=== PATIENT | female | born 1970 | race Caucasian/White ===

== ENCOUNTER 2021-01-05 16:54 | Emergency (ER) | payer MEDICAID ==
[~2021-01-05] VITALS: Ht 154.9 cm; Wt 89.4 kg
[2021-01-05 16:58] VITALS: BP 139/89
[2021-01-05] MEDS ORDERED: ACETAMINOPHEN EXTRA STRENGTH 500 MG TAB PO ONE (17:05)
[2021-01-05] MEDS ORDERED: KETOROLAC 30 MG/ML VIAL IM ONE (17:05)
[2021-01-05] MEDS ORDERED: cefTRIAXone 1,000 MG in LIDOCAINE MPF 1% 2.1 ML IM ONE (17:05)
--- NOTE | 2021-01-05 17:06 | NUR ---
Patient ambulated to bed 3. RN evaluating the patient at bedside.
--- NOTE | 2021-01-05 17:14 | NUR ---
library media technician at bedside.
--- NOTE | 2021-01-05 17:26 | NUR ---
50 Y/O FROM HOME C/O FOOT PAIN INBETWEEN 4TH AND 5TH DIGIT THAT RADIATES TO DORSAL OF L FOOT, 10/ SHARP. TOOK TYLENOL AT 1200 01/06/21 WITH SOME RELIEF, PAIN IS BACK. FOOT HAS NO DISCHARGE, REDNESS AND SWELLING AROUND AREA, NO NUMBNESS OR TINGLING SENSATION OF FOOT. PT STATES THERE WAS NO INJURY PRIOR TO PAIN. NKA. PMH: DM2. DENIES SOB, COUGH, CHEST PAIN OR CONTACT WITH ANYONE COVID POSITIVE.
[2021-01-05] MEDS ORDERED: cefTRIAXone 1,000 MG VIAL ONE (17:28)
[2021-01-05] MEDS ORDERED: LIDOCAINE MPF 1% 5 ML ONE (17:29)
[2021-01-05] MEDS ORDERED: CEPH500C16 PO (18:15)
[2021-01-05] MEDS ORDERED: NAPR-54 PO (18:15)
[2021-01-05] MEDS ORDERED: SULF-59 PO (18:15)
[2021-01-05 18:30] VITALS: BP 139/89
--- NOTE | 2021-01-05 18:31 | NUR ---
Patient discharged with v/s stable. Written and verbal after care instructions given and explained. Patient alert, oriented and verbalized understanding of instructions. Ambulatory with steady gait. All questions addressed prior to discharge. ID band removed. Patient advised to follow up with PMD. Rx of KEFLEX, NAPROSYN, BACTRUM DS TAB given. Patient educated on indication of medication including possible reaction and side effects. Opportunity to ask questions provided and answered.
== END 2021-01-05 18:31 | disposition home or self-care (01) ==
LOC: MED 16:54
DX: L03.115 Cellulitis of right lower limb (principal)
CPT/HCPCS: 73630; 96372; 99284; J0696; J1885; J2001

== ENCOUNTER 2021-07-07 18:19 | Emergency (ER) | payer MEDICAID ==
[~2021-07-07] VITALS: Ht 154.9 cm; Wt 89.8 kg
[~2021-07-07 18:19] MED LIST: CEPH500C16 PO; NAPR-54 PO; SULF-59 PO
[2021-07-07 18:35] VITALS: BP 139/78
--- NOTE | 2021-07-07 18:38 | NUR ---
Patient ambulated to bed 11 with steady/even gait
--- NOTE | 2021-07-07 18:40 | NUR ---
51 y/o F BIB self c/o headache x 5 days worsening today. Patient A&Ox4, ambulatory, states pain to back and left side of head, 10/10, constant, non-radiating pain. Patient also reports mid left-sided back pain. Patient denies any medications for pain today. Denies fever, chills, N/V, abdominal pain, SOB, CP, blurry vision, dizziness. 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 Bed locked in lowest position, side rails x 1, call light in reach. PMH: DM Meds: Insulin NKA
--- NOTE | 2021-07-07 18:40 | NUR ---
Patient ambulated to restroom with steady/even gait.
--- NOTE | 2021-07-07 18:45 | NUR ---
Dr. Rosario is evaluating patient at bedside.
[2021-07-07] MEDS ORDERED: KETOROLAC 30 MG/ML VIAL IVP ONE (18:50)
[2021-07-07] MEDS ORDERED: ACETAMINOPHEN EXTRA STRENGTH 500 MG TAB PO ONE (18:50)
[2021-07-07] MEDS ORDERED: diazePAM 5 MG TAB PO ONE (18:50)
--- NOTE | 2021-07-07 19:10 | NUR ---
Report and transfer of care endorsed to XIOMARA Tolbert.
--- NOTE | 2021-07-07 19:10 | NUR ---
Blood & urine sample collected, walked to lab and handed to CPT Tara
--- NOTE | 2021-07-07 19:15 | NUR ---
RECIVED REPORT ABOUT PATIENT FROM HOLLIE SOLANO. CONTINUATION OF CARE. PATIENT LAYING IN BED WITH EYES CLOSED. PATIENT STATES PAIN IS IN HEAD, L SIDE OF JAW AND GENERALIZED BODY. PATIENT GIVEN MEDICATIONS ORDERED. PATIENT IV SITE REMAINS PATIENT.
[2021-07-07 19:19] LABS: BASOPHILS % (AUTO) 0.3 % (0.0-2.0); EOSINOPHILS # (AUTO) 0.1 K/uL (0-0.4); EOSINOPHILS % (AUTO) 1.3 % (0.0-4.0); HEMATOCRIT 42.2 % (36-48); HEMOGLOBIN 14.3 g/dL (12.0-16.0); LYMPHOCYTES # (AUTO) 2.1 K/uL (2.5-16.5); LYMPHOCYTES % (AUTO) 29.2 % (20.5-51.1); MEAN CORPUSCULAR HEMOGLOBIN 32 pg (27-31); MEAN CORPUSCULAR HGB CONC 34 g/dL (33-37); MEAN CORPUSCULAR VOLUME 93.9 fL (80-94); MONOCYTES # (AUTO) 0.6 K/uL (0.8-1.0); MONOCYTES % (AUTO) 7.7 % (1.7-9.3); NEUTROPHILS # (AUTO) 4.5 K/uL (1.8-7.7); NEUTROPHILS % (AUTO) 61.5 % (42.2-75.2); PLATELET COUNT (AUTO) 290 K/uL (140-450); RED BLOOD CELL COUNT(AUTO) 4.49 MIL/uL (4.20-5.40); RED CELL DISTRIBUTION WIDTH 12.5 % (11.6-13.7); WHITE BLOOD COUNT (AUTO) 7.3 K/uL (4.8-10.8)
--- NOTE | 2021-07-07 19:22 | NUR ---
PATIENT SIGNED CONSENT FORM FOR CT WITH CONTRAST.
[2021-07-07 19:32] LABS: ALBUMIN 3.4 g/dL (3.4-5.0); CARBON DIOXIDE 30.9 mmol/L (21-32); CREATININE 0.9 mg/dL (0.6-1.3); POTASSIUM 3.9 mmol/L (3.5-5.1); TOTAL BILIRUBIN 0.3 mg/dL (0.0-1.0)
--- NOTE | 2021-07-07 20:06 | NUR ---
Patient taken to ct via w/c.
--- NOTE | 2021-07-07 21:26 | NUR ---
PATIENT STATES CASTRO AND GENERALIZED PAIN HAS DECREASED, "I FEEL BETTER."
[2021-07-07] MEDS ORDERED: IBUP-2213 PO (21:33)
[2021-07-07] MEDS ORDERED: METH-1681 PO (21:33)
[2021-07-07 21:50] VITALS: BP 112/70
--- NOTE | 2021-07-07 21:50 | NUR ---
Patient discharged with v/s stable. Written and verbal after care instructions given and explained. Patient alert, oriented and verbalized understanding of instructions. Ambulatory with steady gait. All questions addressed prior to discharge. ID band removed. Patient advised to follow up with PMD. Rx of ROBAXIN, IBUPROFEN given. Patient educated on indication of medication including possible reaction and side effects. Opportunity to ask questions provided and answered.
== END 2021-07-07 21:50 | disposition home or self-care (01) ==
LOC: MED 18:19
DX: M62.830 Muscle spasm of back (principal); R51.9 Headache, unspecified; M54.2 Cervicalgia; E11.9 Type 2 diabetes mellitus without complications
CPT/HCPCS: 36415; 70470; 80053; 81002; 85025; 96374; 99285; J1885; Q9967

== ENCOUNTER 2022-06-18 19:42 | Emergency (ER) | payer MEDICAID, OTHER ==
[~2022-06-18] VITALS: Ht 154.9 cm; Wt 86.2 kg
[~2022-06-18 19:42] MED LIST changes: +IBUP-2213 PO; +METH-1681 PO
[2022-06-18 20:06] VITALS: BP 143/71
--- NOTE | 2022-06-18 20:11 | NUR ---
TO LOBBY FOLLOWING TRIAGE AND OBTAINING UA
--- NOTE | 2022-06-18 22:54 | NUR ---
PT AMBULATED TO BED NO 11
--- NOTE | 2022-06-18 23:06 | NUR ---
Dr. Story examining patient.
[2022-06-18] MEDS ORDERED: KETOROLAC 60 MG/2 ML VIAL IM ONE (23:25)
[2022-06-18] MEDS ORDERED: IBUP-2213 PO (23:48)
[2022-06-19 00:15] VITALS: BP 140/80
--- NOTE | 2022-06-19 00:15 | NUR ---
Patient discharged. Written and verbal after care instructions given and explained aoubt flank pain in adult. Patient alert, oriented and verbalized understanding of instructions. Ambulatory with steady gait. All questions addressed prior to discharge. ID band removed. Patient advised to follow up with PMD. Rx of ibuprofen given. Patient educated on indication of medication including possible reaction and side effects. Opportunity to ask questions provided and answered.
== END 2022-06-19 00:15 | disposition home or self-care (01) ==
LOC: MED 19:42
DX: R10.11 Right upper quadrant pain (principal); R51.9 Headache, unspecified; E11.9 Type 2 diabetes mellitus without complications; Z79.899 Other long term (current) drug therapy; Z98.890 Other specified postprocedural states
CPT/HCPCS: 81025; 96372; 99283; J1885

== ENCOUNTER 2023-02-27 19:55 | Emergency (ER) | payer OTHER ==
[~2023-02-27] VITALS: Ht 154.9 cm; Wt 83.0 kg
[2023-02-27 20:12] VITALS: BP 141/104
--- NOTE | 2023-02-27 20:17 | NUR ---
Dr. Montes examining patient in triage room
--- NOTE | 2023-02-27 20:21 | NUR ---
Patient taken to bed 11.
--- NOTE | 2023-02-27 20:30 | NUR ---
nterpreter # [id number] C/O facial numbness/droop x today. Patient reported, had facial numbness/droop ~ 1000 AM today. Patient denies left side numbness or weakness. PMHx: DM
[2023-02-27 20:45] LABS: BASOPHILS % (AUTO) 0.5 % (0.0-2.0); EOSINOPHILS # (AUTO) 0.1 K/uL (0-0.4); EOSINOPHILS % (AUTO) 1.1 % (0.0-4.0); HEMATOCRIT 42.6 % (36-48); HEMOGLOBIN 14.6 g/dL (12.0-16.0); LYMPHOCYTES # (AUTO) 2.9 K/uL (2.5-16.5); LYMPHOCYTES % (AUTO) 41.4 % (20.5-51.1); MEAN CORPUSCULAR HEMOGLOBIN 31 pg (27-31); MEAN CORPUSCULAR HGB CONC 34 g/dL (33-37); MEAN CORPUSCULAR VOLUME 91.4 fL (80-94); MONOCYTES # (AUTO) 0.5 K/uL (0.8-1.0); MONOCYTES % (AUTO) 7.2 % (1.7-9.3); NEUTROPHILS # (AUTO) 3.5 K/uL (1.8-7.7); NEUTROPHILS % (AUTO) 49.8 % (42.2-75.2); PLATELET COUNT (AUTO) 287 K/uL (140-450); RED BLOOD CELL COUNT(AUTO) 4.66 MIL/uL (4.20-5.40); RED CELL DISTRIBUTION WIDTH 12.9 % (11.6-13.7); WHITE BLOOD COUNT (AUTO) 7.1 K/uL (4.8-10.8)
--- NOTE | 2023-02-27 20:47 | NUR ---
Patient taken to CT scan via gurney.
--- NOTE | 2023-02-27 20:56 | NUR ---
PT RETURNED FROM CT VIA [facility]
[2023-02-27 21:06] LABS: ALBUMIN 3.5 g/dL (3.4-5.0); ANION GAP 10.3 (8-16); CARBON DIOXIDE 29.8 mmol/L (21-32); CREATININE 0.8 mg/dL (0.6-1.3); POTASSIUM 4.1 mmol/L (3.5-5.1); TOTAL BILIRUBIN 0.5 mg/dL (0.0-1.0)
[2023-02-27] MEDS ORDERED: PRED20TA5 PO (22:11)
[2023-02-27] MEDS ORDERED: ACYC400T14 PO (22:11)
[2023-02-27 22:28] VITALS: BP 138/71
--- NOTE | 2023-02-27 22:28 | NUR ---
Patient discharged with v/s stable. Written and verbal after care instructions given and explained. Patient alert, oriented and verbalized understanding of instructions. with steady gait. All questions addressed prior to discharge. ID band removed. Patient advised to follow up with PMD. Rx of zovirax and prednuisone given. Patient educated on indication of medication including possible reaction and side effects. Opportunity to ask questions provided and answered. pt left with her belongings and accompany with sister.
== END 2023-02-27 22:28 | disposition home or self-care (01) ==
LOC: MED 19:55
DX: G51.0 Bell's palsy (principal); E11.9 Type 2 diabetes mellitus without complications; Z79.4 Long term (current) use of insulin; Z79.899 Other long term (current) drug therapy
CPT/HCPCS: 36415; 70450; 80053; 85025; 99284

== ENCOUNTER 2023-12-19 15:41 | Emergency (ER) | payer OTHER ==
[~2023-12-19] VITALS: Ht 170.2 cm; Wt 90.7 kg
[~2023-12-19 15:41] MED LIST changes: +ACYC400T14 PO; +PRED20TA5 PO
[2023-12-19 15:46] VITALS: BP 174/119; PULSE 98; RESP 20; TEMP 98.1; O2SAT 96
[2023-12-19 16:27] VITALS: BP 146/83; PULSE 95; RESP 13; TEMP 98.1
[2023-12-19 16:45] VITALS: O2SAT 96
[2023-12-19 17:42] VITALS: O2SAT 96
[2023-12-19] MEDS ORDERED: IBUP-2213 PO (18:01)
[2023-12-19] MEDS ORDERED: ACET-10509 PO (18:01)
[2023-12-19] MEDS ORDERED: CYCL-711 PO (18:02)
[2023-12-19] MEDS ORDERED: LID5T TP (18:02)
[2023-12-19] MEDS: KETOROLAC 30 MG/ML VIAL IM ONE (18:23)
[2023-12-20] MEDS ORDERED: ACET-10509 PO (10:59)
[2023-12-20] MEDS ORDERED: IBUP-2213 PO (10:59)
[2023-12-20] MEDS ORDERED: LID5T TP (10:59)
[2023-12-20] MEDS ORDERED: CYCL-711 PO (10:59)
== END 2023-12-19 18:30 | disposition home or self-care (01) ==
LOC: MED 15:41
DX: S16.1XXA Strain of muscle, fascia and tendon at neck level, initial encounter (principal); S20.212A Contusion of left front wall of thorax, initial encounter; M50.30 Other cervical disc degeneration, unspecified cervical region; M25.512 Pain in left shoulder; R10.9 Unspecified abdominal pain; E11.9 Type 2 diabetes mellitus without complications; Z79.4 Long term (current) use of insulin; Z79.899 Other long term (current) drug therapy; V49.88XA Car occupant (driver) (passenger) injured in other specified transport accidents, initial encounter; Y93.89 Activity, other specified; Y92.89 Other specified places as the place of occurrence of the external cause; Y99.8 Other external cause status
CPT/HCPCS: 71101; 72125; 73020; 81025; 96372; 99285; J1885